=== PATIENT | male | born 1940 | race Caucasian/White ===

== ENCOUNTER 2016-12-08 20:03 | Inpatient (IN) | payer OTHER ==
[~2016-12-08] VITALS: Ht 193 cm; Wt 84.8 kg
[2016-12-08] MEDS ORDERED: DILTIAZEM 5 MG/ML, 5ML ONE ×2 (20:28→21:24)
[2016-12-08] MEDS ORDERED: DILTIAZEM 5 MG/ML, 5ML IV ONE ×2 (20:30→21:30)
[2016-12-08] MEDS ORDERED: SODIUM CHLORIDE FLUSH 10ML SYR IVF ONE (20:30)
[2016-12-08] MEDS ORDERED: SODIUM CHLORIDE 0.9% 1,000ML IVBOLUS ONE (20:30)
[2016-12-08] MEDS ORDERED: PANTOPRAZOLE 80 MG in SODIUM CHLORIDE 0.9% 100 ML IV SCH (20:33)
[2016-12-08] MEDS ORDERED: PANTOPRAZOLE 80 MG in SODIUM CHLORIDE 0.9% 50 ML IVPB ONE (20:33)
[2016-12-08 20:52] LABS: ASPARTATE AMINO TRANSFERASE 37 U/L (15-37); BLOOD UREA NITROGEN 29 mg/dL (7-18)
[2016-12-08] MEDS ORDERED: FURO20TA3 PO (20:54)
[2016-12-08] MEDS ORDERED: MULT-658 PO (20:54)
[2016-12-08] MEDS ORDERED: WARF5TAB7 PO (20:54)
[2016-12-08] MEDS ORDERED: OXYGEN NAS (20:54)
[2016-12-08] MEDS ORDERED: METO25TA2 PO (20:54)
[2016-12-08] MEDS ORDERED: ALBU0.63 NEB (20:54)
[2016-12-08] MEDS ORDERED: LOVA20TA2 PO (20:54)
[2016-12-08] MEDS ORDERED: ASCO-96 PO (20:54)
[2016-12-08] MEDS ORDERED: [UNRECOGNIZED DRUG - OTHER] NAS (20:54)
[2016-12-08 20:58] LABS: IS PT STATUS REG ER OR PRE ER? YES
[2016-12-08] MEDS ORDERED: PLEASE ENTER ALLERGIES MC SCH ×2 (21:00)
[2016-12-08] MEDS ORDERED: FENTANYL PF 100 MCG/2ML ONE ×2 (21:24→23:00)
[2016-12-08] MEDS ORDERED: FENTANYL PF 100 MCG/2ML IVPush ONE ×2 (21:30→23:00)
[2016-12-08] MEDS ORDERED: MAGNESIUM SULFATE PMX 4GM/100M 100 ML IV ONE (21:30)
[2016-12-08] MEDS: DILTIAZEM 125 MG in DEXTROSE 5% 100 ML IV SCH ×2 (21:33→21:42)
[2016-12-08] MEDS ORDERED: DIGOXIN 0.25 MG/ML, 2ML ONE (21:55)
[2016-12-08] MEDS ORDERED: DIGOXIN 0.25 MG/ML, 2ML IVPush ONE (22:00)
[2016-12-08] MEDS ORDERED: LIDOCAINE 1%, 20ML INFIL ONE (22:00)
[2016-12-08] MEDS ORDERED: CEFTRIAXONE PMX 1GM/50ML 50 ML IV ONE (22:00)
[2016-12-08] MEDS ORDERED: DIPHTHERIA-TETANUS ADULT 0.5ML IM-VACC ONE (22:00)
[2016-12-08] MEDS ORDERED: LIDOCAINE 1%, 20ML ONE (22:48)
[2016-12-08 22:54] VITALS: BP 103/64
[2016-12-08 23:18] VITALS: BP 112/50
[2016-12-08 23:19] VITALS: BP 112/50
[2016-12-08 23:45] VITALS: BP 105/54
[2016-12-09] VITALS (14 sets, daily range): BP systolic 96–128; BP diastolic 56–72
[2016-12-09] MEDS ORDERED: HYDROmorphone 1 MG/ML, 1ML ONE (00:11)
[2016-12-09] MEDS ORDERED: HYDROmorphone 2 MG/ML, 1ML IVPush ONE (00:30)
[2016-12-09] MEDS ORDERED: LABETALOL 5MG/ML, 20ML IV PRN (01:00)
[2016-12-09] MEDS ORDERED: POLYETHYLENE GLYCOL 17 GM PACKET PO PRN (01:00)
[2016-12-09] MEDS ORDERED: DOCUSATE 100 MG CAPSULE PO PRN (01:00)
[2016-12-09] MEDS ORDERED: TRAZODONE 50MG TABLET PO PRN (01:00)
[2016-12-09] MEDS ORDERED: ONDANSETRON ODT 4 MG PO PRN (01:00)
[2016-12-09] MEDS ORDERED: BISACODYL 10 MG SUPP PR PRN (01:00)
[2016-12-09] MEDS: LOVASTATIN 40 MG TABLET PO SCH ×2 (03:53→20:57)
[2016-12-09] MEDS: DIGOXIN 0.25 MG/ML, 2ML IVPush SCH ×3 (04:06→15:48)
[2016-12-09] MEDS: ACETAMINOPHEN 325 MG TABLET PO PRN ×2 (04:06→09:11)
[2016-12-09 05:29] LABS: BLOOD UREA NITROGEN 29 mg/dL (7-18)
[2016-12-09 05:35] LABS: ASPARTATE AMINO TRANSFERASE 35 U/L (15-37)
[2016-12-09 06:01] LABS: IS PT STATUS REG ER OR PRE ER? NO
[2016-12-09] MEDS: THIAMINE 100MG TABLET PO SCH (09:10)
[2016-12-09] MEDS: FOLIC ACID 1 MG TABLET PO SCH (09:10)
[2016-12-09] MEDS: METOPROLOL SUCCINATE 25 MG TAB.ER.24H PO SCH (09:10)
[2016-12-09] MEDS: HYDROcodone/APAP 5/325 TABLET PO PRN ×3 (10:35→20:57)
[2016-12-09 10:56] LABS: IS PT STATUS REG ER OR PRE ER? NO
[2016-12-09] MEDS ORDERED: POTASSIUM CHLORIDE 20 MEQ TAB.ER.PRT PO ONE ×2 (15:30→20:00)
[2016-12-09] MEDS: OMEPRAZOLE 20 MG CAPSULE.DR PO SCH (17:34)
[2016-12-10] VITALS (13 sets, daily range): BP systolic 94–123; BP diastolic 53–80
[2016-12-10] MEDS: HYDROcodone/APAP 5/325 TABLET PO PRN ×3 (03:36→23:56)
[2016-12-10 05:33] LABS: BLOOD UREA NITROGEN 29 mg/dL (7-18)
[2016-12-10 05:38] LABS: ASPARTATE AMINO TRANSFERASE 37 U/L (15-37)
[2016-12-10] MEDS ORDERED: FUROSEMIDE 20 MG/2 ML IV ONE (06:00)
[2016-12-10] MEDS: THIAMINE 100MG TABLET PO SCH (08:32)
[2016-12-10] MEDS: OMEPRAZOLE 20 MG CAPSULE.DR PO SCH ×2 (08:32→17:19)
[2016-12-10] MEDS: METOPROLOL SUCCINATE 25 MG TAB.ER.24H PO SCH (08:33)
[2016-12-10] MEDS: FOLIC ACID 1 MG TABLET PO SCH (08:33)
[2016-12-10] MEDS: LOVASTATIN 40 MG TABLET PO SCH (20:31)
[2016-12-11 01:33] VITALS: BP 103/67
[2016-12-11 05:33] LABS: BLOOD UREA NITROGEN 25 mg/dL (7-18)
[2016-12-11 06:30] VITALS: BP 135/55
[2016-12-11] MEDS ORDERED: PROPOFOL 10 MG/ML, 20ML ONE (08:25)
[2016-12-11] MEDS ORDERED: PHENYLEPHRINE 10 MG/ML ONE (08:25)
[2016-12-11] MEDS: FOLIC ACID 1 MG TABLET PO SCH (10:34)
[2016-12-11] MEDS: THIAMINE 100MG TABLET PO SCH (10:36)
[2016-12-11] MEDS: OMEPRAZOLE 20 MG CAPSULE.DR PO SCH ×2 (10:37→16:46)
[2016-12-11] MEDS: METOPROLOL SUCCINATE 25 MG TAB.ER.24H PO SCH ×2 (10:37→21:54)
[2016-12-11] MEDS: HYDROcodone/APAP 5/325 TABLET PO PRN ×2 (10:38→18:28)
[2016-12-11] MEDS ORDERED: EPINEPHRINE SYRINGE 0.1 MG/ML, 10ML ONE (10:51)
[2016-12-11] MEDS: SUCRALFATE 1 GM TABLET PO SCH ×3 (11:05→21:53)
[2016-12-11 12:53] VITALS: BP 98/61
[2016-12-11 19:49] VITALS: BP 116/77
[2016-12-11] MEDS: LOVASTATIN 40 MG TABLET PO SCH (21:53)
[2016-12-12 01:48] VITALS: BP 100/64
[2016-12-12] MEDS: HYDROcodone/APAP 5/325 TABLET PO PRN ×2 (02:38→20:31)
[2016-12-12 05:45] LABS: ASPARTATE AMINO TRANSFERASE 26 U/L (15-37); BLOOD UREA NITROGEN 26 mg/dL (7-18)
[2016-12-12 08:20] VITALS: BP 96/60
[2016-12-12] MEDS: SUCRALFATE 1 GM TABLET PO SCH ×4 (09:00→20:30)
[2016-12-12] MEDS: METOPROLOL SUCCINATE 25 MG TAB.ER.24H PO SCH ×2 (09:00→20:31)
[2016-12-12] MEDS: OMEPRAZOLE 20 MG CAPSULE.DR PO SCH ×2 (09:00→16:57)
[2016-12-12] MEDS: FOLIC ACID 1 MG TABLET PO SCH (09:00)
[2016-12-12] MEDS: THIAMINE 100MG TABLET PO SCH (09:00)
[2016-12-12] MEDS ORDERED: SODIUM CHLORIDE 0.9% 1,000 ML IV SCH (11:30)
[2016-12-12] MEDS ORDERED: POLYETHYLENE GLYCOL 17 GM PACKET NG ONE (12:30)
[2016-12-12] MEDS: SODIUM CHLORIDE 0.9% 1,000 ML IV SCH ×2 (13:30→16:57)
[2016-12-12 15:07] VITALS: BP 99/62
[2016-12-12 20:00] VITALS: BP 122/75
[2016-12-12] MEDS: LOVASTATIN 40 MG TABLET PO SCH (20:30)
[2016-12-13] VITALS (8 sets, daily range): BP systolic 99–115; BP diastolic 62–76
[2016-12-13] MEDS: SODIUM CHLORIDE 0.9% 1,000 ML IV SCH (01:12)
[2016-12-13] MEDS: SUCRALFATE 1 GM TABLET PO SCH ×4 (09:17→22:05)
[2016-12-13] MEDS: FOLIC ACID 1 MG TABLET PO SCH (09:18)
[2016-12-13] MEDS: HYDROcodone/APAP 5/325 TABLET PO PRN (09:18)
[2016-12-13] MEDS: OMEPRAZOLE 20 MG CAPSULE.DR PO SCH ×2 (09:18→18:20)
[2016-12-13] MEDS: THIAMINE 100MG TABLET PO SCH (09:18)
[2016-12-13] MEDS: METOPROLOL SUCCINATE 25 MG TAB.ER.24H PO SCH ×2 (09:18→12:14)
[2016-12-13] MEDS ORDERED: POTASSIUM CHLORIDE 20 MEQ TAB.ER.PRT PO ONE (12:00)
[2016-12-13] MEDS ORDERED: MAGNESIUM SULFATE PMX 4GM/100M 100 ML IV ONE (17:00)
[2016-12-13] MEDS ORDERED: WARFARIN 5 MG TABLET PO-COUM ONE (18:00)
[2016-12-13] MEDS: DILTIAZEM 30 MG TABLET PO SCH ×2 (18:20→22:05)
[2016-12-13] MEDS: LOVASTATIN 40 MG TABLET PO SCH (22:05)
[2016-12-14] VITALS (15 sets, daily range): BP systolic 102–151; BP diastolic 63–78
[2016-12-14 06:08] LABS: ASPARTATE AMINO TRANSFERASE 23 U/L (15-37); BLOOD UREA NITROGEN 19 mg/dL (7-18)
[2016-12-14] MEDS: SUCRALFATE 1 GM TABLET PO SCH ×4 (08:04→22:11)
[2016-12-14] MEDS: DILTIAZEM 30 MG TABLET PO SCH ×3 (08:04→22:12)
[2016-12-14] MEDS: THIAMINE 100MG TABLET PO SCH (08:04)
[2016-12-14] MEDS: FOLIC ACID 1 MG TABLET PO SCH (08:04)
[2016-12-14] MEDS: METOPROLOL SUCCINATE 25 MG TAB.ER.24H PO SCH ×2 (08:04→22:11)
[2016-12-14] MEDS: OMEPRAZOLE 20 MG CAPSULE.DR PO SCH ×2 (08:04→17:10)
[2016-12-14] MEDS ORDERED: OMNIPAQUE 350 MG/ML, 100ML BOTTLE ONE (14:40)
[2016-12-14] MEDS ORDERED: WARFARIN 5 MG TABLET PO-COUM ONE (18:00)
[2016-12-14] MEDS: LOVASTATIN 40 MG TABLET PO SCH (22:11)
[2016-12-15] MEDS: HYDROcodone/APAP 5/325 TABLET PO PRN ×2 (00:39→21:42)
[2016-12-15 00:43] VITALS: BP 128/72
[2016-12-15 05:18] LABS: BLOOD UREA NITROGEN 18 mg/dL (7-18)
[2016-12-15 05:21] LABS: ASPARTATE AMINO TRANSFERASE 26 U/L (15-37)
[2016-12-15] MEDS: SUCRALFATE 1 GM TABLET PO SCH ×4 (07:30→21:39)
[2016-12-15 07:36] VITALS: BP 128/84
[2016-12-15] MEDS: METOPROLOL SUCCINATE 25 MG TAB.ER.24H PO SCH ×2 (08:46→21:39)
[2016-12-15] MEDS: FOLIC ACID 1 MG TABLET PO SCH (08:46)
[2016-12-15] MEDS: DILTIAZEM 30 MG TABLET PO SCH ×4 (08:46→21:39)
[2016-12-15] MEDS: OMEPRAZOLE 20 MG CAPSULE.DR PO SCH ×2 (08:46→15:24)
[2016-12-15] MEDS: THIAMINE 100MG TABLET PO SCH (08:47)
[2016-12-15] MEDS: HYDROCORTISONE 25 MG SUPP PR SCH ×2 (10:54→21:00)
[2016-12-15] MEDS: PSYLLIUM PACKET PO SCH (10:54)
[2016-12-15 13:15] VITALS: BP 103/67
[2016-12-15 18:45] VITALS: BP 107/68
[2016-12-15] MEDS: LOVASTATIN 40 MG TABLET PO SCH (21:39)
[2016-12-16 03:00] VITALS: BP 108/68
[2016-12-16 06:03] LABS: BLOOD UREA NITROGEN 18 mg/dL (7-18)
[2016-12-16 06:08] LABS: ASPARTATE AMINO TRANSFERASE 18 U/L (15-37)
[2016-12-16] MEDS: DILTIAZEM 30 MG TABLET PO SCH ×4 (07:43→20:05)
[2016-12-16] MEDS: METOPROLOL SUCCINATE 25 MG TAB.ER.24H PO SCH ×2 (07:43→20:05)
[2016-12-16] MEDS: PSYLLIUM PACKET PO SCH (07:44)
[2016-12-16] MEDS: FOLIC ACID 1 MG TABLET PO SCH (07:44)
[2016-12-16] MEDS: THIAMINE 100MG TABLET PO SCH (07:44)
[2016-12-16] MEDS: OMEPRAZOLE 20 MG CAPSULE.DR PO SCH ×2 (07:44→15:48)
[2016-12-16] MEDS: SUCRALFATE 1 GM TABLET PO SCH ×4 (07:44→20:05)
[2016-12-16] MEDS: HYDROCORTISONE 25 MG SUPP PR SCH ×4 (07:45→20:13)
[2016-12-16 08:30] VITALS: BP 113/75
[2016-12-16 14:30] VITALS: BP 105/65
[2016-12-16] MEDS: LOVASTATIN 40 MG TABLET PO SCH (20:05)
[2016-12-16 20:10] VITALS: BP 108/66
[2016-12-17 00:33] VITALS: BP 98/61
[2016-12-17 06:44] LABS: ANISOCYTOSIS 1+; POLYCHROMASIA 1+
[2016-12-17 06:46] LABS: MICROCYTOSIS 1+
[2016-12-17 06:48] VITALS: BP 115/75
[2016-12-17 06:50] LABS: ASPARTATE AMINO TRANSFERASE 24 U/L (15-37); BLOOD UREA NITROGEN 22 mg/dL (7-18)
[2016-12-17] MEDS: HYDROCORTISONE 25 MG SUPP PR SCH ×2 (09:00→21:00)
[2016-12-17] MEDS: DILTIAZEM 30 MG TABLET PO SCH ×4 (10:11→21:20)
[2016-12-17] MEDS: PSYLLIUM PACKET PO SCH (10:11)
[2016-12-17] MEDS: SUCRALFATE 1 GM TABLET PO SCH ×4 (10:11→21:07)
[2016-12-17] MEDS: OMEPRAZOLE 20 MG CAPSULE.DR PO SCH ×2 (10:12→16:33)
[2016-12-17] MEDS: FOLIC ACID 1 MG TABLET PO SCH (10:12)
[2016-12-17] MEDS: THIAMINE 100MG TABLET PO SCH (10:12)
[2016-12-17] MEDS: METOPROLOL SUCCINATE 25 MG TAB.ER.24H PO SCH ×2 (10:12→21:20)
[2016-12-17 13:02] VITALS: BP 126/81
[2016-12-17 13:21] VITALS: BP 137/72
[2016-12-17 19:50] VITALS: BP 91/51
[2016-12-17] MEDS: LOVASTATIN 40 MG TABLET PO SCH (21:07)
[2016-12-17 21:08] VITALS: BP 88/58
[2016-12-18 03:30] VITALS: BP 103/64
[2016-12-18 06:27] LABS: ASPARTATE AMINO TRANSFERASE 14 U/L (15-37); BLOOD UREA NITROGEN 24 mg/dL (7-18)
[2016-12-18 07:46] VITALS: BP 106/68
[2016-12-18] MEDS: SUCRALFATE 1 GM TABLET PO SCH ×4 (11:00→20:56)
[2016-12-18 12:52] VITALS: BP 113/65
[2016-12-18] MEDS: THIAMINE 100MG TABLET PO SCH (13:00)
[2016-12-18] MEDS: DILTIAZEM 30 MG TABLET PO SCH (13:01)
[2016-12-18] MEDS: FOLIC ACID 1 MG TABLET PO SCH (13:01)
[2016-12-18] MEDS: METOPROLOL SUCCINATE 25 MG TAB.ER.24H PO SCH ×2 (13:01→21:00)
[2016-12-18] MEDS: OMEPRAZOLE 20 MG CAPSULE.DR PO SCH ×2 (13:02→17:00)
[2016-12-18] MEDS: PSYLLIUM PACKET PO SCH (13:02)
[2016-12-18] MEDS: HYDROCORTISONE 25 MG SUPP PR SCH ×2 (13:02→20:59)
[2016-12-18] MEDS: ACETAMINOPHEN 325 MG TABLET PO PRN (14:02)
[2016-12-18 16:00] VITALS: BP 93/56
[2016-12-18 19:30] VITALS: BP 93/49
[2016-12-18] MEDS: LOVASTATIN 40 MG TABLET PO SCH (20:56)
[2016-12-18 21:01] VITALS: BP 96/60
[2016-12-19 02:06] VITALS: BP 108/65
[2016-12-19] MEDS: HYDROcodone/APAP 5/325 TABLET PO PRN (02:32)
[2016-12-19 06:11] LABS: BLOOD UREA NITROGEN 27 mg/dL (7-18)
[2016-12-19 07:17] VITALS: BP 107/62
[2016-12-19] MEDS: FOLIC ACID 1 MG TABLET PO SCH (08:36)
[2016-12-19] MEDS: PSYLLIUM PACKET PO SCH (08:36)
[2016-12-19] MEDS: METOPROLOL SUCCINATE 25 MG TAB.ER.24H PO SCH ×2 (08:36→20:20)
[2016-12-19] MEDS: OMEPRAZOLE 20 MG CAPSULE.DR PO SCH ×2 (08:36→18:20)
[2016-12-19] MEDS: SUCRALFATE 1 GM TABLET PO SCH ×4 (08:36→20:20)
[2016-12-19] MEDS: THIAMINE 100MG TABLET PO SCH (08:36)
[2016-12-19] MEDS: DILTIAZEM 120 MG CAP.ER.24H PO SCH (08:36)
[2016-12-19] MEDS: HYDROCORTISONE 25 MG SUPP PR SCH ×3 (08:37→20:20)
[2016-12-19] MEDS ORDERED: OMNIPAQUE 350 MG/ML, 100ML BOTTLE ONE (10:40)
[2016-12-19 12:10] VITALS: BP 100/64
[2016-12-19 12:11] VITALS: BP 93/56
[2016-12-19 12:12] VITALS: BP 83/46
[2016-12-19] MEDS ORDERED: FLUDROCORTISONE 0.1 MG TABLET PO ONE (12:30)
[2016-12-19] MEDS: TAMSULOSIN 0.4 MG CAP.ER.24H PO SCH (12:55)
[2016-12-19] MEDS: ENOXAPARIN 40 MG/0.4 ML SQ SCH (18:20)
[2016-12-19 19:00] VITALS: BP_SYST 84; BP_SYST 87; BP_SYST 92; BP_DIAS 44; BP_DIAS 51; BP_DIAS 59
[2016-12-19] MEDS: LOVASTATIN 40 MG TABLET PO SCH (20:20)
[2016-12-20 02:30] VITALS: BP_SYST 107; BP_SYST 93; BP_SYST 95; BP_DIAS 54; BP_DIAS 56; BP_DIAS 67
[2016-12-20] MEDS: FOLIC ACID 1 MG TABLET PO SCH (07:47)
[2016-12-20] MEDS: SUCRALFATE 1 GM TABLET PO SCH ×4 (07:47→21:15)
[2016-12-20] MEDS: OMEPRAZOLE 20 MG CAPSULE.DR PO SCH ×2 (07:47→16:15)
[2016-12-20] MEDS: THIAMINE 100MG TABLET PO SCH (07:47)
[2016-12-20] MEDS: METOPROLOL SUCCINATE 25 MG TAB.ER.24H PO SCH (07:47)
[2016-12-20] MEDS: TAMSULOSIN 0.4 MG CAP.ER.24H PO SCH (07:47)
[2016-12-20] MEDS: DILTIAZEM 120 MG CAP.ER.24H PO SCH (07:48)
[2016-12-20 07:54] VITALS: BP_SYST 101; BP_SYST 109; BP_SYST 96; BP_DIAS 62; BP_DIAS 65; BP_DIAS 73
[2016-12-20] MEDS: HYDROCORTISONE 25 MG SUPP PR SCH ×2 (09:00→21:18)
[2016-12-20] MEDS: DILTIAZEM 30 MG TABLET PO SCH ×2 (09:30→21:15)
[2016-12-20 10:23] VITALS: BP 99/57
[2016-12-20] MEDS: PSYLLIUM PACKET PO SCH (11:56)
[2016-12-20] MEDS: HYDROcodone/APAP 5/325 TABLET PO PRN ×2 (11:59→21:14)
[2016-12-20 16:04] VITALS: BP_SYST 85; BP_SYST 87; BP_SYST 95; BP_DIAS 55; BP_DIAS 56
[2016-12-20] MEDS: ENOXAPARIN 40 MG/0.4 ML SQ SCH (16:16)
[2016-12-20 20:11] VITALS: BP 104/68
[2016-12-20] MEDS: LOVASTATIN 40 MG TABLET PO SCH (21:15)
[2016-12-21 01:07] VITALS: BP 99/63
[2016-12-21 05:37] LABS: BLOOD UREA NITROGEN 32 mg/dL (7-18)
[2016-12-21] MEDS: SUCRALFATE 1 GM TABLET PO SCH ×4 (08:18→20:48)
[2016-12-21] MEDS: OMEPRAZOLE 20 MG CAPSULE.DR PO SCH ×2 (08:18→17:20)
[2016-12-21] MEDS: HYDROCORTISONE 25 MG SUPP PR SCH ×2 (09:00→20:53)
[2016-12-21 09:37] VITALS: BP 98/63
[2016-12-21] MEDS: TAMSULOSIN 0.4 MG CAP.ER.24H PO SCH (09:38)
[2016-12-21] MEDS: THIAMINE 100MG TABLET PO SCH (09:38)
[2016-12-21] MEDS: PSYLLIUM PACKET PO SCH (09:38)
[2016-12-21] MEDS: FOLIC ACID 1 MG TABLET PO SCH (09:38)
[2016-12-21] MEDS: METOPROLOL SUCCINATE 25 MG TAB.ER.24H PO SCH (09:39)
[2016-12-21] MEDS: DILTIAZEM 30 MG TABLET PO SCH ×2 (09:40→20:48)
[2016-12-21 09:50] VITALS: BP_SYST 87; BP_SYST 94; BP_DIAS 55; BP_DIAS 59
[2016-12-21] MEDS: SODIUM CHLORIDE 0.9% 1,000 ML IV SCH ×2 (11:23→20:46)
[2016-12-21] MEDS: DIGOXIN 0.25 MG/ML, 2ML IVPush SCH ×3 (11:23→23:31)
[2016-12-21] MEDS: CEFTRIAXONE PMX 1GM/50ML 50 ML IV SCH (12:28)
[2016-12-21] MEDS: ENOXAPARIN 40 MG/0.4 ML SQ SCH (17:20)
[2016-12-21 18:33] VITALS: BP 106/57
[2016-12-21] MEDS: LOVASTATIN 40 MG TABLET PO SCH (20:47)
[2016-12-21] MEDS: HYDROcodone/APAP 5/325 TABLET PO PRN (20:51)
[2016-12-21 20:54] VITALS: BP 97/67
[2016-12-22 02:33] VITALS: BP 117/70
[2016-12-22 05:51] LABS: ASPARTATE AMINO TRANSFERASE 30 U/L (15-37); BLOOD UREA NITROGEN 27 mg/dL (7-18)
[2016-12-22] MEDS: DIGOXIN 0.25 MG/ML, 2ML IVPush SCH (05:52)
[2016-12-22 05:56] VITALS: BP_SYST 117; BP_SYST 120; BP_SYST 128; BP_DIAS 71; BP_DIAS 77
[2016-12-22] MEDS: SODIUM CHLORIDE 0.9% 1,000 ML IV SCH ×2 (05:56→20:00)
[2016-12-22 08:45] VITALS: BP 115/67
[2016-12-22] MEDS: METOPROLOL SUCCINATE 25 MG TAB.ER.24H PO SCH (08:45)
[2016-12-22] MEDS: SUCRALFATE 1 GM TABLET PO SCH ×4 (08:45→20:12)
[2016-12-22] MEDS: PSYLLIUM PACKET PO SCH (08:45)
[2016-12-22] MEDS: TAMSULOSIN 0.4 MG CAP.ER.24H PO SCH (08:45)
[2016-12-22] MEDS: THIAMINE 100MG TABLET PO SCH (08:45)
[2016-12-22] MEDS: OMEPRAZOLE 20 MG CAPSULE.DR PO SCH ×2 (08:45→16:14)
[2016-12-22] MEDS: FOLIC ACID 1 MG TABLET PO SCH (08:45)
[2016-12-22] MEDS: DILTIAZEM 30 MG TABLET PO SCH ×2 (08:45→20:12)
[2016-12-22] MEDS: DIGOXIN 0.125 MG TABLET PO SCH (08:48)
[2016-12-22] MEDS: HYDROCORTISONE 25 MG SUPP PR SCH ×2 (08:50→20:17)
[2016-12-22] MEDS: CEFTRIAXONE PMX 1GM/50ML 50 ML IV SCH (11:51)
[2016-12-22 13:43] VITALS: BP 106/53
[2016-12-22] MEDS: ENOXAPARIN 40 MG/0.4 ML SQ SCH (16:14)
[2016-12-22 19:22] VITALS: BP 102/60
[2016-12-22] MEDS: LOVASTATIN 40 MG TABLET PO SCH (20:12)
[2016-12-22] MEDS: HYDROcodone/APAP 5/325 TABLET PO PRN (20:13)
[2016-12-23 02:51] VITALS: BP 118/67
[2016-12-23 05:42] LABS: BLOOD UREA NITROGEN 21 mg/dL (7-18)
[2016-12-23 05:45] LABS: ASPARTATE AMINO TRANSFERASE 25 U/L (15-37)
[2016-12-23] MEDS: SODIUM CHLORIDE 0.9% 1,000 ML IV SCH ×2 (06:00→16:24)
[2016-12-23] MEDS: SUCRALFATE 1 GM TABLET PO SCH ×4 (06:43→20:46)
[2016-12-23] MEDS: OMEPRAZOLE 20 MG CAPSULE.DR PO SCH ×2 (06:43→16:24)
[2016-12-23 07:21] VITALS: BP 119/70
[2016-12-23] MEDS: HYDROCORTISONE 25 MG SUPP PR SCH ×2 (07:53→20:42)
[2016-12-23] MEDS: THIAMINE 100MG TABLET PO SCH (07:53)
[2016-12-23] MEDS: TAMSULOSIN 0.4 MG CAP.ER.24H PO SCH (07:53)
[2016-12-23] MEDS: FOLIC ACID 1 MG TABLET PO SCH (07:53)
[2016-12-23] MEDS: PSYLLIUM PACKET PO SCH (07:53)
[2016-12-23] MEDS: DIGOXIN 0.125 MG TABLET PO SCH (07:53)
[2016-12-23] MEDS: DILTIAZEM 30 MG TABLET PO SCH ×2 (07:53→20:46)
[2016-12-23] MEDS: METOPROLOL SUCCINATE 25 MG TAB.ER.24H PO SCH (07:53)
[2016-12-23] MEDS: CEFTRIAXONE PMX 1GM/50ML 50 ML IV SCH (11:29)
[2016-12-23] MEDS ORDERED: MAGNESIUM SULFATE PMX 2GM/50ML 50 ML IV ONE (12:00)
[2016-12-23 13:10] VITALS: BP_SYST 108; BP_SYST 110; BP_SYST 99; BP_DIAS 58; BP_DIAS 63; BP_DIAS 70
[2016-12-23] MEDS: ENOXAPARIN 40 MG/0.4 ML SQ SCH (16:25)
[2016-12-23 19:34] VITALS: BP_SYST 101; BP_SYST 118; BP_SYST 99; BP_DIAS 63; BP_DIAS 65; BP_DIAS 67
[2016-12-23] MEDS: LOVASTATIN 40 MG TABLET PO SCH (20:47)
[2016-12-23] MEDS: HYDROcodone/APAP 5/325 TABLET PO PRN (20:47)
[2016-12-24 01:32] VITALS: BP 121/70
[2016-12-24] MEDS: SODIUM CHLORIDE 0.9% 1,000 ML IV SCH ×2 (02:00→11:53)
[2016-12-24 05:57] LABS: BLOOD UREA NITROGEN 17 mg/dL (7-18)
[2016-12-24 06:01] LABS: ASPARTATE AMINO TRANSFERASE 24 U/L (15-37)
[2016-12-24 07:56] VITALS: BP 118/64
[2016-12-24] MEDS: OMEPRAZOLE 20 MG CAPSULE.DR PO SCH ×2 (08:48→16:48)
[2016-12-24] MEDS: SUCRALFATE 1 GM TABLET PO SCH ×4 (08:48→21:26)
[2016-12-24] MEDS: HYDROCORTISONE 25 MG SUPP PR SCH ×2 (09:00→21:00)
[2016-12-24 09:30] VITALS: BP_SYST 105; BP_SYST 110; BP_DIAS 53; BP_DIAS 65
[2016-12-24] MEDS: DILTIAZEM 30 MG TABLET PO SCH ×2 (10:10→21:26)
[2016-12-24] MEDS: TAMSULOSIN 0.4 MG CAP.ER.24H PO SCH (10:10)
[2016-12-24] MEDS: FOLIC ACID 1 MG TABLET PO SCH (10:10)
[2016-12-24] MEDS: METOPROLOL SUCCINATE 25 MG TAB.ER.24H PO SCH (10:11)
[2016-12-24] MEDS: DIGOXIN 0.125 MG TABLET PO SCH (10:11)
[2016-12-24] MEDS: THIAMINE 100MG TABLET PO SCH (10:12)
[2016-12-24] MEDS: CEFTRIAXONE PMX 1GM/50ML 50 ML IV SCH (11:43)
[2016-12-24] MEDS: PSYLLIUM PACKET PO SCH (11:44)
[2016-12-24 15:15] VITALS: BP 114/69
[2016-12-24] MEDS: ENOXAPARIN 40 MG/0.4 ML SQ SCH (16:46)
[2016-12-24 19:51] VITALS: BP 102/67
[2016-12-24] MEDS: LOVASTATIN 40 MG TABLET PO SCH (21:26)
[2016-12-24] MEDS: HYDROcodone/APAP 5/325 TABLET PO PRN (21:26)
[2016-12-25] VITALS (8 sets, daily range): BP systolic 97–125; BP diastolic 56–78
[2016-12-25 05:41] LABS: BLOOD UREA NITROGEN 16 mg/dL (7-18)
[2016-12-25 05:46] LABS: ASPARTATE AMINO TRANSFERASE 31 U/L (15-37)
[2016-12-25] MEDS: OMEPRAZOLE 20 MG CAPSULE.DR PO SCH ×2 (08:04→16:24)
[2016-12-25] MEDS: DILTIAZEM 30 MG TABLET PO SCH ×4 (08:04→20:55)
[2016-12-25] MEDS: DIGOXIN 0.125 MG TABLET PO SCH (08:05)
[2016-12-25] MEDS: FOLIC ACID 1 MG TABLET PO SCH (08:05)
[2016-12-25] MEDS: TAMSULOSIN 0.4 MG CAP.ER.24H PO SCH (08:05)
[2016-12-25] MEDS: METOPROLOL SUCCINATE 25 MG TAB.ER.24H PO SCH (08:05)
[2016-12-25] MEDS: THIAMINE 100MG TABLET PO SCH (08:05)
[2016-12-25] MEDS: SUCRALFATE 1 GM TABLET PO SCH (08:05)
[2016-12-25] MEDS: HYDROCORTISONE 25 MG SUPP PR SCH ×2 (08:06→20:56)
[2016-12-25] MEDS: SODIUM CHLORIDE 0.9% 1,000 ML IV SCH ×2 (09:42→20:55)
[2016-12-25] MEDS: PSYLLIUM PACKET PO SCH (09:48)
[2016-12-25] MEDS: CEFTRIAXONE PMX 1GM/50ML 50 ML IV SCH (11:34)
[2016-12-25] MEDS: ENOXAPARIN 40 MG/0.4 ML SQ SCH (16:25)
[2016-12-25] MEDS: LOVASTATIN 40 MG TABLET PO SCH (20:55)
[2016-12-25] MEDS: HYDROcodone/APAP 5/325 TABLET PO PRN (20:56)
[2016-12-26 01:42] VITALS: BP 117/69
[2016-12-26] MEDS: DILTIAZEM 30 MG TABLET PO SCH (05:12)
[2016-12-26] MEDS: SODIUM CHLORIDE 0.9% 1,000 ML IV SCH (05:12)
[2016-12-26 06:00] LABS: BLOOD UREA NITROGEN 16 mg/dL (7-18)
[2016-12-26 06:33] VITALS: BP 131/81
[2016-12-26 08:14] VITALS: BP 134/72
[2016-12-26] MEDS: THIAMINE 100MG TABLET PO SCH (08:15)
[2016-12-26] MEDS: OMEPRAZOLE 20 MG CAPSULE.DR PO SCH (08:15)
[2016-12-26] MEDS: FOLIC ACID 1 MG TABLET PO SCH (08:15)
[2016-12-26] MEDS: DIGOXIN 0.125 MG TABLET PO SCH (08:16)
[2016-12-26] MEDS: HYDROCORTISONE 25 MG SUPP PR SCH (08:16)
[2016-12-26] MEDS: PSYLLIUM PACKET PO SCH (08:16)
[2016-12-26] MEDS: TAMSULOSIN 0.4 MG CAP.ER.24H PO SCH (08:16)
[2016-12-26] MEDS: METOPROLOL SUCCINATE 25 MG TAB.ER.24H PO SCH (08:16)
[2016-12-26] MEDS: HYDROcodone/APAP 5/325 TABLET PO PRN (08:23)
[2016-12-26 09:47] VITALS: BP 117/69
[2016-12-26] MEDS ORDERED: DILTIAZEM 30 MG TABLET PO ONE ×2 (11:00)
[2016-12-26] MEDS ORDERED: THIA100T6 PO (11:39)
[2016-12-26] MEDS ORDERED: METO25TA91 PO (11:39)
[2016-12-26] MEDS ORDERED: DIGO125T PO (11:39)
[2016-12-26] MEDS ORDERED: FOLI-17 PO (11:39)
[2016-12-26] MEDS ORDERED: CEFD300C37 PO ×2 (11:46→12:23)
[2016-12-26] MEDS ORDERED: DILT120C9 PO (11:47)
[2016-12-26] MEDS ORDERED: TAMS-11 PO (11:58)
[2016-12-26] MEDS ORDERED: OMEP-110 PO (11:58)
[2016-12-26] MEDS ORDERED: SUCR1ORA2 PO (12:00)
[2016-12-26] MEDS: CEFTRIAXONE PMX 1GM/50ML 50 ML IV SCH (12:04)
[2016-12-26] MEDS ORDERED: HYDR25SU3 PR (12:14)
[2016-12-26 12:28] VITALS: BP 124/69
[2016-12-26] MEDS ORDERED: DILTIAZEM 30 MG TABLET PO SCH (16:00)
[2016-12-27] MEDS ORDERED: DILTIAZEM 120 MG CAP.ER.24H PO SCH (09:00)
== END 2016-12-26 14:10 | disposition home health service (06) | DRG 377 ==
LOC: ED 21:41 → EDIP 12-09 00:17 → 5SO 12-09 02:02 → DCLOUNGE 12-26 13:50
PROVIDERS: ADMIT Internal Medicine; ATTEND Internal Medicine
PROC: 30233L1 Transfusion of Nonautologous Fresh Plasma into Peripheral Vein, Percutaneous Approach (ICD-10-PCS; 2016-12-09)
PROC: 30233K1 Transfusion of Nonautologous Frozen Plasma into Peripheral Vein, Percutaneous Approach (ICD-10-PCS; 2016-12-09)
PROC: 0W3P8ZZ Control Bleeding in Gastrointestinal Tract, Via Natural or Artificial Opening Endoscopic (ICD-10-PCS; 2016-12-11)
PROC: 3E0G8GC Introduction of Other Therapeutic Substance into Upper GI, Via Natural or Artificial Opening Endoscopic (ICD-10-PCS; principal; 2016-12-11 08:00)
PROC: 30233N1 Transfusion of Nonautologous Red Blood Cells into Peripheral Vein, Percutaneous Approach (ICD-10-PCS; 2016-12-14)
DX: K31.82 Dieulafoy lesion (hemorrhagic) of stomach and duodenum (principal); E43 Unspecified severe protein-calorie malnutrition; I50.21 Acute systolic (congestive) heart failure; E87.1 Hypo-osmolality and hyponatremia; E87.2 Acidosis; D62 Acute posthemorrhagic anemia; D68.69 Other thrombophilia; I13.0 Hypertensive heart and chronic kidney disease with heart failure and stage 1 through stage 4 chronic kidney disease, or unspecified chronic kidney disease; I42.9 Cardiomyopathy, unspecified; I48.92 Unspecified atrial flutter; N13.8 Other obstructive and reflux uropathy; N17.9 Acute kidney failure, unspecified; N39.0 Urinary tract infection, site not specified; R17 Unspecified jaundice; S32.2XXA Fracture of coccyx, initial encounter for closed fracture; K92.1 Melena; I48.91 Unspecified atrial fibrillation; Z79.01 Long term (current) use of anticoagulants; B96.4 Proteus (mirabilis) (morganii) as the cause of diseases classified elsewhere; E78.00 Pure hypercholesterolemia, unspecified; E78.5 Hyperlipidemia, unspecified; E83.42 Hypomagnesemia; E87.6 Hypokalemia; I07.1 Rheumatic tricuspid insufficiency; I27.2 Other secondary pulmonary hypertension; I27.81 Cor pulmonale (chronic); I48.2 Chronic atrial fibrillation; I71.4 Abdominal aortic aneurysm, without rupture; I72.3 Aneurysm of iliac artery; J44.9 Chronic obstructive pulmonary disease, unspecified; K29.80 Duodenitis without bleeding; K64.9 Unspecified hemorrhoids; M10.9 Gout, unspecified; N18.3 Chronic kidney disease, stage 3 (moderate); N40.1 Benign prostatic hyperplasia with lower urinary tract symptoms; R29.6 Repeated falls; S00.83XA Contusion of other part of head, initial encounter; S30.0XXA Contusion of lower back and pelvis, initial encounter; T45.515A Adverse effect of anticoagulants, initial encounter; W18.30XA Fall on same level, unspecified, initial encounter; Z66 Do not resuscitate; Z87.891 Personal history of nicotine dependence; Z95.2 Presence of prosthetic heart valve; Z96.641 Presence of right artificial hip joint; Z99.81 Dependence on supplemental oxygen; M19.90 Unspecified osteoarthritis, unspecified site; Z68.22 Body mass index [BMI] 22.0-22.9, adult
CPT/HCPCS: 12002; 36415; 70450; 71010; 71020; 74177; 80048; 80053; 80162; 81001; 82040; 82533; 83605; 83735; 84439; 84443; 84481; 84484; 85014; 85018; 85025; 85610; 86677; 86850; 86900; 86923; 87040; 87077; 87086; 87186; 90714; 93005; 93306; 96374; 96375; 96376; J0696; J1170; J1650; J2704; J3010; J3490; Q9967; A4648; C9113; J1160; J1940; J2370; J3475; J7030; P9016; P9017

== ENCOUNTER 2017-08-25 08:36 | Inpatient (IN) | payer OTHER ==
[~2017-08-25] VITALS: Ht 182.9 cm; Wt 95.8 kg
[~2017-08-25 08:36] MED LIST: ALBU0.63 NEB; ASCO-96 PO; CEFD300C37 PO; DIGO125T PO; DILT120C9 PO; FOLI-17 PO; FURO20TA3 PO; HYDR25SU3 PR; LOVA20TA2 PO; METO25TA2 PO; METO25TA91 PO; MULT-658 PO; OMEP-110 PO; OXYGEN NAS; SUCR1ORA5 PO; TAMS-11 PO; THIA100T6 PO; WARF5TAB7 PO; [UNRECOGNIZED DRUG - OTHER] NAS
[2017-08-25] MEDS ORDERED: LOVA20TA2 PO (08:53)
[2017-08-25] MEDS ORDERED: ALLO300T PO (08:54)
[2017-08-25] MEDS ORDERED: RIVA15TA PO (08:55)
[2017-08-25] MEDS ORDERED: SODIUM CHLORIDE FLUSH 10ML SYR IVF ONE (09:30)
[2017-08-25 09:37] LABS: INTERNATIONAL NORMALIZED RATIO 1.37 (0.93-1.1); PROTHROMBIN TIME 14.2 Seconds (9.6-11.5)
[2017-08-25 09:40] LABS: BASOPHILS # (AUTO) 0.02 x10^3/uL (0-0.1); BASOPHILS % (AUTO) 0 % (0-1); EOSINOPHILS % (AUTO) 0 % (1-7); LYMPHOCYTES # (AUTO) 0.51 x10^3/uL (1-3.4); LYMPHOCYTES % (AUTO) 5 % (22-44); MD NO; MEAN CORPUSCULAR HEMOGLOBIN 30.6 pg (27.5-34.5); MEAN CORPUSCULAR HGB CONC 33.5 g/dL (33.2-36.2); MEAN CORPUSCULAR VOLUME 91.3 fL (81-97); MEAN PLATELET VOLUME 7.9 fL (7.4-10.4); MONOCYTES # (AUTO) 0.72 x10^3/uL (0.2-0.8); MONOCYTES % (AUTO) 7 % (2-9); NEUTROPHILS # (AUTO) 8.44 x10^3/uL (1.8-6.8); NEUTROPHILS % (AUTO) 87 % (42-75); PLATELET COUNT 220 x10^3/uL (130-400); RED BLOOD COUNT 3.88 x10^6/uL (4.38-5.82); RED CELL DISTRIBUTION WIDTH 17.8 % (9.4-14.8)
[2017-08-25 09:43] LABS: ALBUMIN 2.8 g/dL (3.4-5.0); ANION GAP 11 mmol/L (5-15); CALCIUM 8.5 mg/dL (8.5-10.1); CHLORIDE 98 mmol/L (98-107)
[2017-08-25 09:46] LABS: ALANINE AMINOTRANSFERASE 34 U/L (12-78); ALKALINE PHOSPHATASE 132 U/L (45-117); BILIRUBIN,TOTAL 0.6 mg/dL (0.2-1.0); TOTAL PROTEIN 6.8 g/dL (6.4-8.2)
[2017-08-25] MEDS ORDERED: PANTOPRAZOLE 80 MG in SODIUM CHLORIDE 0.9% 50 ML IVPB ONE (10:00)
[2017-08-25] MEDS ORDERED: PANTOPRAZOLE 80 MG in SODIUM CHLORIDE 0.9% 100 ML IV SCH (10:12)
[2017-08-25] MEDS ORDERED: ONDANSETRON 2MG/ML, 2ML IVPush PRN (11:00)
[2017-08-25] MEDS ORDERED: DIGOXIN 0.25 MG/ML, 2ML IVPush ONE (11:00)
[2017-08-25] MEDS ORDERED: DIGOXIN 0.25 MG/ML, 2ML ONE ×2 (11:11→15:22)
[2017-08-25] MEDS: D5%-LACTATED RINGERS 1,000 ML IV SCH (12:40)
[2017-08-25] MEDS: DIGOXIN 0.25 MG/ML, 2ML IVPush SCH ×2 (15:25→21:07)
[2017-08-25 15:59] VITALS: BP 132/72
[2017-08-25 20:00] VITALS: BP 114/67
[2017-08-25] MEDS ORDERED: METOPROLOL SUCCINATE 25 MG TAB.ER.24H PO SCH (21:00)
[2017-08-25] MEDS: ESOMEPRAZOLE SODIUM 80 MG in SODIUM CHLORIDE 0.9% 100 ML IV SCH (21:06)
[2017-08-26] MEDS: D5%-LACTATED RINGERS 1,000 ML IV SCH (01:04)
[2017-08-26 02:00] VITALS: BP 110/70
[2017-08-26 03:24] LABS: ANION GAP 6 mmol/L (5-15); CALCIUM 8.5 mg/dL (8.5-10.1); CHLORIDE 102 mmol/L (98-107); CREATININE 1.17 mg/dL (0.7-1.3)
[2017-08-26] MEDS: ESOMEPRAZOLE SODIUM 80 MG in SODIUM CHLORIDE 0.9% 100 ML IV SCH ×2 (06:23→17:37)
[2017-08-26] MEDS: DILTIAZEM 120 MG CAP.ER.24H PO SCH (08:26)
[2017-08-26] MEDS: DIGOXIN 0.125 MG TABLET PO SCH (08:26)
[2017-08-26 08:27] VITALS: BP 106/69
[2017-08-26 13:37] VITALS: BP 102/66
[2017-08-26] MEDS: METOPROLOL TARTRATE 25 MG TABLET PO SCH (17:38)
[2017-08-26 19:58] VITALS: BP 92/53
[2017-08-27] MEDS: ESOMEPRAZOLE SODIUM 80 MG in SODIUM CHLORIDE 0.9% 100 ML IV SCH ×3 (03:44→23:13)
[2017-08-27 03:45] VITALS: BP 103/68
[2017-08-27] MEDS: METOPROLOL TARTRATE 25 MG TABLET PO SCH ×2 (06:00→17:51)
[2017-08-27 06:19] LABS: ANION GAP 3 mmol/L (5-15); CALCIUM 8.7 mg/dL (8.5-10.1); CHLORIDE 105 mmol/L (98-107); CREATININE 0.99 mg/dL (0.7-1.3)
[2017-08-27 06:29] LABS: BASOPHILS # (AUTO) 0.02 x10^3/uL (0-0.1); BASOPHILS % (AUTO) 0 % (0-1); EOSINOPHILS # (AUTO) 0.25 x10^3/uL (0-0.4); EOSINOPHILS % (AUTO) 4 % (1-7); LYMPHOCYTES # (AUTO) 0.72 x10^3/uL (1-3.4); LYMPHOCYTES % (AUTO) 12 % (22-44); MD NO; MEAN CORPUSCULAR HEMOGLOBIN 31.1 pg (27.5-34.5); MEAN CORPUSCULAR HGB CONC 33.1 g/dL (33.2-36.2); MEAN CORPUSCULAR VOLUME 93.8 fL (81-97); MEAN PLATELET VOLUME 7.9 fL (7.4-10.4); MONOCYTES # (AUTO) 0.73 x10^3/uL (0.2-0.8); MONOCYTES % (AUTO) 12 % (2-9); NEUTROPHILS % (AUTO) 72 % (42-75); PLATELET COUNT 159 x10^3/uL (130-400); RED BLOOD COUNT 2.99 x10^6/uL (4.38-5.82); RED CELL DISTRIBUTION WIDTH 19.3 % (9.4-14.8)
[2017-08-27 07:52] VITALS: BP 110/69
[2017-08-27] MEDS: DIGOXIN 0.125 MG TABLET PO SCH (10:08)
[2017-08-27] MEDS: DILTIAZEM 120 MG CAP.ER.24H PO SCH (10:08)
[2017-08-27] MEDS ORDERED: PROPOFOL 10 MG/ML, 20ML ONE ×2 (13:30)
[2017-08-27] MEDS ORDERED: ONDANSETRON 2MG/ML, 2ML IVPush PRN (14:00)
[2017-08-27] MEDS ORDERED: LABETALOL 5MG/ML, 20ML IV PRN (14:00)
[2017-08-27] MEDS ORDERED: HYDROmorphone 1 MG/ML, 1ML IV PRN (14:00)
[2017-08-27] MEDS ORDERED: OXYcodone 5 MG/5 ML ORAL.SOL UDC PO PRN (14:00)
[2017-08-27] MEDS ORDERED: MIDAZOLAM 1 MG/ML, 2ML IV PRN (14:00)
[2017-08-27] MEDS ORDERED: LORazepam 2 MG/ML, 1ML IVPush PRN (14:00)
[2017-08-27] MEDS ORDERED: FENTANYL PF 100 MCG/2ML IV PRN (14:00)
[2017-08-27] MEDS ORDERED: EPHEDRINE 50 MG/ML, 1ML IVPush PRN (14:00)
[2017-08-27 14:45] VITALS: BP 117/71
[2017-08-27 19:01] VITALS: BP 112/60
[2017-08-28 03:27] VITALS: BP 108/63
[2017-08-28 04:55] LABS: BASOPHILS # (AUTO) 0.01 x10^3/uL (0-0.1); BASOPHILS % (AUTO) 0 % (0-1); EOSINOPHILS # (AUTO) 0.27 x10^3/uL (0-0.4); EOSINOPHILS % (AUTO) 4 % (1-7); LYMPHOCYTES # (AUTO) 0.66 x10^3/uL (1-3.4); LYMPHOCYTES % (AUTO) 10 % (22-44); MD NO; MEAN CORPUSCULAR HEMOGLOBIN 31.3 pg (27.5-34.5); MEAN CORPUSCULAR HGB CONC 32.9 g/dL (33.2-36.2); MEAN CORPUSCULAR VOLUME 95.1 fL (81-97); MEAN PLATELET VOLUME 7.5 fL (7.4-10.4); MONOCYTES % (AUTO) 12 % (2-9); NEUTROPHILS # (AUTO) 4.76 x10^3/uL (1.8-6.8); NEUTROPHILS % (AUTO) 73 % (42-75); PLATELET COUNT 154 x10^3/uL (130-400); RED BLOOD COUNT 2.84 x10^6/uL (4.38-5.82); RED CELL DISTRIBUTION WIDTH 19.8 % (9.4-14.8)
[2017-08-28 05:07] LABS: CALCIUM 8.1 mg/dL (8.5-10.1); CHLORIDE 101 mmol/L (98-107)
[2017-08-28 05:10] LABS: ALBUMIN 2.4 g/dL (3.4-5.0); ANION GAP 6 mmol/L (5-15); CREATININE 0.87 mg/dL (0.7-1.3)
[2017-08-28] MEDS: METOPROLOL TARTRATE 25 MG TABLET PO SCH ×2 (06:00→17:48)
[2017-08-28] MEDS: ESOMEPRAZOLE SODIUM 80 MG in SODIUM CHLORIDE 0.9% 100 ML IV SCH (08:52)
[2017-08-28] MEDS: DIGOXIN 0.125 MG TABLET PO SCH (08:54)
[2017-08-28 08:55] VITALS: BP 107/67
[2017-08-28 11:09] VITALS: BP 113/61
[2017-08-28] MEDS: DILTIAZEM 120 MG CAP.ER.24H PO SCH (11:11)
[2017-08-28] MEDS: ACETAMINOPHEN 325 MG TABLET PO PRN ×2 (15:19→21:57)
[2017-08-28 15:49] VITALS: BP 111/67
[2017-08-28 21:52] VITALS: BP 98/60
[2017-08-28] MEDS: ESOMEPRAZOLE 40 MG IV IVPush SCH (21:56)
[2017-08-29 04:00] VITALS: BP 99/57
[2017-08-29 05:58] LABS: BASOPHILS # (AUTO) 0.02 x10^3/uL (0-0.1); BASOPHILS % (AUTO) 0 % (0-1); EOSINOPHILS # (AUTO) 0.34 x10^3/uL (0-0.4); EOSINOPHILS % (AUTO) 5 % (1-7); LYMPHOCYTES # (AUTO) 0.75 x10^3/uL (1-3.4); LYMPHOCYTES % (AUTO) 12 % (22-44); MD NO; MEAN CORPUSCULAR HEMOGLOBIN 31.1 pg (27.5-34.5); MEAN CORPUSCULAR HGB CONC 32.5 g/dL (33.2-36.2); MEAN CORPUSCULAR VOLUME 95.8 fL (81-97); MEAN PLATELET VOLUME 8.1 fL (7.4-10.4); MONOCYTES # (AUTO) 0.98 x10^3/uL (0.2-0.8); MONOCYTES % (AUTO) 16 % (2-9); NEUTROPHILS # (AUTO) 4.21 x10^3/uL (1.8-6.8); NEUTROPHILS % (AUTO) 67 % (42-75); PLATELET COUNT 151 x10^3/uL (130-400); RED BLOOD COUNT 2.74 x10^6/uL (4.38-5.82); RED CELL DISTRIBUTION WIDTH 21.1 % (9.4-14.8)
[2017-08-29] MEDS: METOPROLOL TARTRATE 25 MG TABLET PO SCH ×2 (06:00→17:37)
[2017-08-29 07:15] VITALS: BP 116/62
[2017-08-29] MEDS: RIVAROXABAN 15 MG TABLET PO SCH (08:29)
[2017-08-29] MEDS: ESOMEPRAZOLE 40 MG IV IVPush SCH ×2 (08:29→22:22)
[2017-08-29] MEDS: DILTIAZEM 120 MG CAP.ER.24H PO SCH (08:30)
[2017-08-29] MEDS: DIGOXIN 0.125 MG TABLET PO SCH (08:30)
[2017-08-29 08:34] VITALS: BP 130/68
[2017-08-29 13:15] VITALS: BP 125/67
[2017-08-29 13:54] LABS: ANION GAP 7 mmol/L (5-15); CALCIUM 8.6 mg/dL (8.5-10.1); CHLORIDE 100 mmol/L (98-107); CREATININE 0.95 mg/dL (0.7-1.3)
[2017-08-29] MEDS: ACETAMINOPHEN 325 MG TABLET PO PRN (18:05)
[2017-08-29 19:47] VITALS: BP 120/69
[2017-08-30 01:06] VITALS: BP 114/67
[2017-08-30 05:55] VITALS: BP 119/77
[2017-08-30 06:05] LABS: BASOPHILS # (AUTO) 0.01 x10^3/uL (0-0.1); BASOPHILS % (AUTO) 0 % (0-1); EOSINOPHILS # (AUTO) 0.28 x10^3/uL (0-0.4); EOSINOPHILS % (AUTO) 6 % (1-7); LYMPHOCYTES # (AUTO) 0.56 x10^3/uL (1-3.4); LYMPHOCYTES % (AUTO) 11 % (22-44); MD NO; MEAN CORPUSCULAR HEMOGLOBIN 31.4 pg (27.5-34.5); MEAN CORPUSCULAR HGB CONC 33.4 g/dL (33.2-36.2); MEAN PLATELET VOLUME 7.8 fL (7.4-10.4); MONOCYTES # (AUTO) 0.66 x10^3/uL (0.2-0.8); MONOCYTES % (AUTO) 13 % (2-9); NEUTROPHILS # (AUTO) 3.61 x10^3/uL (1.8-6.8); NEUTROPHILS % (AUTO) 70 % (42-75); PLATELET COUNT 166 x10^3/uL (130-400); RED BLOOD COUNT 2.84 x10^6/uL (4.38-5.82); RED CELL DISTRIBUTION WIDTH 20.6 % (9.4-14.8)
[2017-08-30] MEDS: ACETAMINOPHEN 325 MG TABLET PO PRN (06:10)
[2017-08-30] MEDS: METOPROLOL TARTRATE 25 MG TABLET PO SCH (06:10)
[2017-08-30 06:13] LABS: ALBUMIN 2.3 g/dL (3.4-5.0); ANION GAP 8 mmol/L (5-15); CALCIUM 8.4 mg/dL (8.5-10.1); CHLORIDE 101 mmol/L (98-107)
[2017-08-30 06:19] LABS: ALANINE AMINOTRANSFERASE 16 U/L (12-78); ALKALINE PHOSPHATASE 92 U/L (45-117); BILIRUBIN,TOTAL 0.8 mg/dL (0.2-1.0); CREATININE 1.13 mg/dL (0.7-1.3); TOTAL PROTEIN 6.1 g/dL (6.4-8.2)
[2017-08-30 07:40] VITALS: BP 107/65
[2017-08-30] MEDS ORDERED: PANTOPRAZOLE 40 MG IV ONE (07:48)
[2017-08-30] MEDS: DIGOXIN 0.125 MG TABLET PO SCH (07:52)
[2017-08-30] MEDS: RIVAROXABAN 15 MG TABLET PO SCH (07:52)
[2017-08-30] MEDS: DILTIAZEM 120 MG CAP.ER.24H PO SCH (07:52)
[2017-08-30] MEDS ORDERED: PANTOPRAZOLE 40 MG IV IVPush SCH (09:00)
[2017-08-30] MEDS ORDERED: PANT40TA5 PO (11:50)
[2017-08-30] MEDS ORDERED: PANTOPROZOLE 40MG TABLET PO SCH (12:00)
== END 2017-08-30 13:40 | disposition home or self-care (01) | DRG 813 ==
LOC: ED 10:10 → EDIP 10:11 → ED 10:23 → 5SO 15:48 → DCLOUNGE 08-30 13:20
PROVIDERS: ADMIT Internal Medicine; ATTEND Internal Medicine
PROC: 0W3P8ZZ Control Bleeding in Gastrointestinal Tract, Via Natural or Artificial Opening Endoscopic (ICD-10-PCS; principal; 2017-08-27 13:15)
DX: D68.32 Hemorrhagic disorder due to extrinsic circulating anticoagulants (principal); N17.0 Acute kidney failure with tubular necrosis; K29.81 Duodenitis with bleeding; K63.81 Dieulafoy lesion of intestine; I48.2 Chronic atrial fibrillation; I48.92 Unspecified atrial flutter; D62 Acute posthemorrhagic anemia; Z99.81 Dependence on supplemental oxygen; J44.9 Chronic obstructive pulmonary disease, unspecified; K92.1 Melena; D68.9 Coagulation defect, unspecified; W19.XXXA Unspecified fall, initial encounter; E78.5 Hyperlipidemia, unspecified; I10 Essential (primary) hypertension; K59.00 Constipation, unspecified; M10.9 Gout, unspecified; Z79.01 Long term (current) use of anticoagulants; Z87.891 Personal history of nicotine dependence; Z95.2 Presence of prosthetic heart valve; Y93.89 Activity, other specified; Y92.89 Other specified places as the place of occurrence of the external cause; R79.1 Abnormal coagulation profile; T45.515A Adverse effect of anticoagulants, initial encounter
CPT/HCPCS: 36415; 71045; 78278; 80048; 80053; 80162; 82040; 83735; 85018; 85025; 85610; 86850; 86900; 93005; 96365; 96366; 96375; J2704; A9560; C9113; C9898; J1160; J7121

== ENCOUNTER 2018-04-28 12:04 | Inpatient (IN) | payer OTHER ==
[~2018-04-28] VITALS: Ht 193 cm; Wt 80.5 kg
[2018-04-28] VITALS (15 sets, daily range): BP systolic 113–143; BP diastolic 56–80
[~2018-04-28 12:04] MED LIST changes: +ALLO300T PO; +PANT40TA5 PO; +RIVA15TA PO; +RIVA20TA PO; -THIA100T6 PO; +THIA100T67 PO; +WARF-36 PO; -WARF5TAB7 PO
[2018-04-28] MEDS ORDERED: SODIUM CHLORIDE FLUSH 10ML SYR IVF ONE (12:30)
[2018-04-28 12:38] LABS: ALANINE AMINOTRANSFERASE 17 U/L (12-78); ALBUMIN 2.9 g/dL (3.4-5.0); ANION GAP 8 mmol/L (5-15); CALCIUM 8.7 mg/dL (8.5-10.1); CHLORIDE 104 mmol/L (98-107); INTERNATIONAL NORMALIZED RATIO 1.27 (0.93-1.1); PROTHROMBIN TIME 13.1 Seconds (9.6-11.5)
[2018-04-28 12:43] LABS: ALKALINE PHOSPHATASE 99 U/L (45-117); BILIRUBIN,TOTAL 0.5 mg/dL (0.2-1.0); TOTAL PROTEIN 6.5 g/dL (6.4-8.2); TROPONIN I 0.026 ng/mL (0.000-0.045)
[2018-04-28 12:44] LABS: MEAN CORPUSCULAR HEMOGLOBIN 22.5 pg (27.5-34.5); MEAN CORPUSCULAR HGB CONC 30.6 g/dL (33.2-36.2); MEAN CORPUSCULAR VOLUME 73.6 fL (81-97); MEAN PLATELET VOLUME 7.6 fL (7.4-10.4); PLATELET COUNT 302 x10^3/uL (130-400); RED BLOOD COUNT 2.63 x10^6/uL (4.38-5.82); RED CELL DISTRIBUTION WIDTH 19.8 % (9.4-14.8)
[2018-04-28 12:45] LABS: HEMOGRAM NOTE RECHECKED
[2018-04-28 12:48] LABS: BASOPHILS % (AUTO) 0 % (0-1); EOSINOPHILS # (AUTO) 0.09 x10^3/uL (0-0.4); EOSINOPHILS % (AUTO) 2 % (1-7); LYMPHOCYTES # (AUTO) 0.68 x10^3/uL (1-3.4); LYMPHOCYTES % (AUTO) 12 % (22-44); MD MORPH REVIEW ONLY; MONOCYTES # (AUTO) 0.35 x10^3/uL (0.2-0.8); MONOCYTES % (AUTO) 6 % (2-9); NEUTROPHILS # (AUTO) 4.47 x10^3/uL (1.8-6.8); NEUTROPHILS % (AUTO) 80 % (42-75)
[2018-04-28 12:49] LABS: ANISOCYTOSIS 1+; HYPOCHROMIA 1+; MICROCYTOSIS 1+; OVALOCYTES 1+; POLYCHROMASIA 1+
[2018-04-28 12:50] LABS: <PLATELET ESTIMATE> ADEQUATE; <PLT MORPHOLOGY> NORMAL PLT MORPH
[2018-04-28] MEDS ORDERED: PANTOPRAZOLE 40 MG IV IVPush ONE (13:30)
[2018-04-28] MEDS ORDERED: PANTOPRAZOLE 40 MG IV ONE (13:58)
[2018-04-28 14:10] LABS: MICROSCOPIC INDICATED
[2018-04-28 14:12] LABS: CULTURE INDICATED? YES
[2018-04-28] MEDS ORDERED: ONDANSETRON 2MG/ML, 2ML IVPush PRN (14:30)
[2018-04-28] MEDS ORDERED: ACETAMINOPHEN 325 MG TABLET PO PRN (14:30)
[2018-04-28] MEDS ORDERED: hydrALAzine 20 MG/ML, 1ML IVPush PRN (14:30)
[2018-04-28] MEDS ORDERED: DOCUSATE 100 MG CAPSULE PO PRN (14:30)
[2018-04-28] MEDS ORDERED: ONDANSETRON ODT 4 MG PO PRN (14:30)
[2018-04-28] MEDS ORDERED: BISACODYL 10 MG SUPP PR PRN (14:30)
[2018-04-28] MEDS ORDERED: LABETALOL 5MG/ML, 20ML IVPush PRN (14:30)
[2018-04-28] MEDS ORDERED: MAGNESIUM SULFATE PMX 2GM/50ML 50 ML IV ONE (15:00)
[2018-04-28] MEDS ORDERED: ALBUTEROL SULFATE 2.5 MG/3 ML NPPB PRN (16:00)
[2018-04-28] MEDS: SODIUM CHLORIDE 0.9% 1,000 ML IV SCH (17:46)
[2018-04-28 18:07] LABS: % IRON SATURATION 7 % (20-55); IRON LEVEL 27 mcg/dL (65-175); TOTAL IRON BINDING CAPACITY 398 mcg/dL (250-450)
[2018-04-28 18:10] LABS: TROPONIN I 0.018 ng/mL (0.000-0.045)
[2018-04-28] MEDS: LOVASTATIN 20 MG TABLET PO SCH (22:37)
[2018-04-28] MEDS: METOPROLOL SUCCINATE 25 MG TAB.ER.24H PO SCH (22:37)
[2018-04-29 00:14] VITALS: BP 143/82
[2018-04-29 01:18] LABS: MICROSCOPIC AUTO
[2018-04-29 01:26] LABS: CULTURE INDICATED? YES
[2018-04-29 05:23] LABS: BASOPHILS # (AUTO) 0.02 x10^3/uL (0-0.1); BASOPHILS % (AUTO) 0 % (0-1); EOSINOPHILS # (AUTO) 0.17 x10^3/uL (0-0.4); EOSINOPHILS % (AUTO) 3 % (1-7); LYMPHOCYTES # (AUTO) 0.55 x10^3/uL (1-3.4); LYMPHOCYTES % (AUTO) 10 % (22-44); MD NO; MEAN CORPUSCULAR HEMOGLOBIN 23.2 pg (27.5-34.5); MEAN CORPUSCULAR HGB CONC 31.1 g/dL (33.2-36.2); MEAN CORPUSCULAR VOLUME 74.8 fL (81-97); MEAN PLATELET VOLUME 7.7 fL (7.4-10.4); MONOCYTES # (AUTO) 0.48 x10^3/uL (0.2-0.8); MONOCYTES % (AUTO) 8 % (2-9); NEUTROPHILS % (AUTO) 79 % (42-75); PLATELET COUNT 269 x10^3/uL (130-400); RED BLOOD COUNT 3.09 x10^6/uL (4.38-5.82)
[2018-04-29 05:34] LABS: ALBUMIN 2.8 g/dL (3.4-5.0); ANION GAP 9 mmol/L (5-15); CALCIUM 8.5 mg/dL (8.5-10.1); CHLORIDE 107 mmol/L (98-107)
[2018-04-29 05:42] LABS: ALANINE AMINOTRANSFERASE 17 U/L (12-78); ALKALINE PHOSPHATASE 94 U/L (45-117); CHOL/HDL RATIO 2.3; CHOLESTEROL, TOTAL 81 mg/dL (140-239); CREATININE 1.21 mg/dL (0.7-1.3); HDL CHOL % 44 % (26-37); HDL CHOLESTEROL (DIRECT) 36 mg/dL (40-60); LDL CHOLESTEROL,CALCULATED 28 mg/dL (54-169); LDL/HDL RATIO 0.8 (0.5-3.0); THYROID STIMULATING HORMONE 0.773 mIU/L (0.358-3.740); TOTAL PROTEIN 6.2 g/dL (6.4-8.2); TRIGLYCERIDES 86 mg/dL (50-200); VLDL CHOLESTEROL 17 mg/dL (0-25)
[2018-04-29 07:15] VITALS: BP 142/82
[2018-04-29] MEDS ORDERED: OXYGEN NAS SCH (09:00)
[2018-04-29] MEDS: FOLIC ACID 1 MG TABLET PO SCH (09:49)
[2018-04-29] MEDS: THIAMINE 100MG TABLET PO SCH (09:49)
[2018-04-29] MEDS: DIGOXIN 0.125 MG TABLET PO SCH (09:49)
[2018-04-29] MEDS: PANTOPROZOLE 40MG TABLET PO SCH ×2 (09:49→17:19)
[2018-04-29] MEDS: DILTIAZEM 120 MG CAP.ER.24H PO SCH (09:49)
[2018-04-29] MEDS: SENNA/DOCUSATE TABLET PO SCH (09:50)
[2018-04-29] MEDS: FUROSEMIDE 20 MG TABLET PO SCH (09:50)
[2018-04-29] MEDS: METOPROLOL SUCCINATE 25 MG TAB.ER.24H PO SCH ×2 (09:50→20:02)
[2018-04-29] MEDS: SODIUM CHLORIDE 0.9% 1,000 ML IV SCH ×2 (09:53→22:23)
[2018-04-29] MEDS: PSYLLIUM PACKET PO SCH (10:33)
[2018-04-29 14:14] VITALS: BP 101/56
[2018-04-29 20:00] VITALS: BP 109/53
[2018-04-29] MEDS: LOVASTATIN 20 MG TABLET PO SCH (20:02)
[2018-04-29 20:04] VITALS: BP 94/60
[2018-04-30 02:00] VITALS: BP 119/71
[2018-04-30 05:31] LABS: BASOPHILS # (AUTO) 0.02 x10^3/uL (0-0.1); BASOPHILS % (AUTO) 0 % (0-1); EOSINOPHILS # (AUTO) 0.28 x10^3/uL (0-0.4); EOSINOPHILS % (AUTO) 5 % (1-7); LYMPHOCYTES % (AUTO) 10 % (22-44); MD NO; MEAN CORPUSCULAR HEMOGLOBIN 23.1 pg (27.5-34.5); MEAN CORPUSCULAR HGB CONC 30.8 g/dL (33.2-36.2); MEAN CORPUSCULAR VOLUME 75.2 fL (81-97); MEAN PLATELET VOLUME 7.8 fL (7.4-10.4); MONOCYTES # (AUTO) 0.61 x10^3/uL (0.2-0.8); MONOCYTES % (AUTO) 10 % (2-9); NEUTROPHILS # (AUTO) 4.39 x10^3/uL (1.8-6.8); NEUTROPHILS % (AUTO) 74 % (42-75); PLATELET COUNT 268 x10^3/uL (130-400); RED BLOOD COUNT 3.16 x10^6/uL (4.38-5.82); RED CELL DISTRIBUTION WIDTH 20.3 % (9.4-14.8)
[2018-04-30 07:16] VITALS: BP 132/74
[2018-04-30] MEDS: FOLIC ACID 1 MG TABLET PO SCH (08:30)
[2018-04-30] MEDS: PSYLLIUM PACKET PO SCH (08:31)
[2018-04-30] MEDS: DILTIAZEM 120 MG CAP.ER.24H PO SCH (08:31)
[2018-04-30] MEDS: PANTOPROZOLE 40MG TABLET PO SCH (08:31)
[2018-04-30] MEDS: DIGOXIN 0.125 MG TABLET PO SCH (08:31)
[2018-04-30] MEDS: METOPROLOL SUCCINATE 25 MG TAB.ER.24H PO SCH (08:32)
[2018-04-30] MEDS: FUROSEMIDE 20 MG TABLET PO SCH (08:32)
[2018-04-30] MEDS: THIAMINE 100MG TABLET PO SCH (08:32)
[2018-04-30] MEDS: SENNA/DOCUSATE TABLET PO SCH (08:32)
[2018-04-30] MEDS ORDERED: PANT40TA5 PO (10:30)
[2018-04-30] MEDS: SODIUM CHLORIDE 0.9% 1,000 ML IV SCH (11:04)
[2018-04-30 12:43] VITALS: BP 134/74
== END 2018-04-30 15:20 | disposition home or self-care (01) | DRG 377 ==
LOC: ED 14:37 → EDIP 15:09 → 4WST 15:14 → DCLOUNGE 04-30 15:00
PROVIDERS: ADMIT Hospitalist; ATTEND Family Medicine
PROC: 30233N1 Transfusion of Nonautologous Red Blood Cells into Peripheral Vein, Percutaneous Approach (ICD-10-PCS; principal; 2018-04-28)
DX: K92.2 Gastrointestinal hemorrhage, unspecified (principal); E43 Unspecified severe protein-calorie malnutrition; D62 Acute posthemorrhagic anemia; D68.59 Other primary thrombophilia; N17.9 Acute kidney failure, unspecified; J96.10 Chronic respiratory failure, unspecified whether with hypoxia or hypercapnia; I48.2 Chronic atrial fibrillation; E78.00 Pure hypercholesterolemia, unspecified; E78.5 Hyperlipidemia, unspecified; E83.42 Hypomagnesemia; I10 Essential (primary) hypertension; J44.9 Chronic obstructive pulmonary disease, unspecified; K44.9 Diaphragmatic hernia without obstruction or gangrene; K59.00 Constipation, unspecified; M10.9 Gout, unspecified; W18.39XA Other fall on same level, initial encounter; R04.0 Epistaxis; W18.30XA Fall on same level, unspecified, initial encounter; Z66 Do not resuscitate; Z79.01 Long term (current) use of anticoagulants; Z86.010 Personal history of colon polyps; Z87.19 Personal history of other diseases of the digestive system; Z87.891 Personal history of nicotine dependence; Z95.2 Presence of prosthetic heart valve; Z99.81 Dependence on supplemental oxygen; Y93.89 Activity, other specified; Y92.89 Other specified places as the place of occurrence of the external cause; Z79.899 Other long term (current) drug therapy
CPT/HCPCS: 36415; 36430; 70450; 71045; 78278; 80053; 80061; 80162; 81001; 83540; 83550; 83735; 83880; 84100; 84443; 84484; 85014; 85018; 85025; 85610; 85730; 86850; 86900; 86923; 87077; 87086; 87186; 93005; 96374; G0378; A9560; C9113; C9898; J3475; J7030; P9016